=== PATIENT | female | born 1950 | race Caucasian/White ===

== ENCOUNTER → 2018-02-06 | Outpatient (CLI) | payer MEDICARE, OTHER ==
[~2018-02-06] MED LIST: D3-20002000 UNIT; Daily Multiple1 EACH PO; FOLI1; LOSA25; LOSA50 PO; LOSARTAN POTAS100 MG PO; METTREX2.5 PO; MULT50L; PRED1; Prilosec Otc20 MG
== END ==
LOC: LAB EV 09:15 → LAB SHORT 09:15
DX: N30.01 Acute cystitis with hematuria (principal)
CPT/HCPCS: 87077; 87086; 87186

== ENCOUNTER 2020-12-17 08:04 | Emergency (ER) | payer MEDICARE, OTHER ==
[~2020-12-17] VITALS: Ht 162.6 cm; Wt 95.2 kg
[2020-12-17] MEDS ORDERED: AMLODIPINE BESYL5 MG PO (08:40)
[2020-12-17] MEDS ORDERED: CYCL10 PO (11:38)
[2020-12-17] MEDS ORDERED: Percocet 5-3251 EACH PO (11:38)
== END 2020-12-17 11:48 | disposition home or self-care (01) ==
LOC: ER 08:04
DX: M54.5 Low back pain (principal); I10 Essential (primary) hypertension; Z88.7 Allergy status to serum and vaccine; Z88.1 Allergy status to other antibiotic agents; Z91.012 Allergy to eggs; Z79.899 Other long term (current) drug therapy
CPT/HCPCS: 72100; 73502; 73590; 99283-25; A9270

== ENCOUNTER 2022-03-01 09:45 | Day surgery (SDC) | payer MEDICARE, OTHER ==
[~2022-03-01] VITALS: Ht 162.6 cm; Wt 92.7 kg
[~2022-03-01 09:45] MED LIST changes: +AMLODIPINE BESYL5 MG PO; +CYCL10 PO; +Percocet 5-3251 EACH PO
--- NOTE | 2022-03-01 10:51 | NUR ---
03/01/22 1051 Virginia Flower CALL LIGHT WITHIN REACH
== END 2022-03-01 12:15 | disposition home or self-care (01) ==
LOC: ORSCSDS 09:45 → ORD 11:15 → ORSCSDS 12:15
PROVIDERS: Surgery
PROC: 0DBK8ZX Excision of Ascending Colon, Via Natural or Artificial Opening Endoscopic, Diagnostic (ICD-10-PCS; principal; 2022-03-01 11:15)
DX: Z12.11 Encounter for screening for malignant neoplasm of colon (principal); Z86.010 Personal history of colon polyps; D12.2 Benign neoplasm of ascending colon; I10 Essential (primary) hypertension; M06.9 Rheumatoid arthritis, unspecified; G47.33 Obstructive sleep apnea (adult) (pediatric); E66.9 Obesity, unspecified; Z68.35 Body mass index [BMI] 35.0-35.9, adult; Z79.899 Other long term (current) drug therapy
CPT/HCPCS: 88305; J2704; J7120

== ENCOUNTER 2022-03-24 06:06 | Day surgery (SDC) | payer MEDICARE, OTHER ==
[~2022-03-24] VITALS: Ht 162.6 cm; Wt 94.7 kg
[~2022-03-24 06:06] MED LIST changes: +ALDACTONE25 MG PO; +HYDCHL25 PO; +OMEP20ER PO; -Prilosec Otc20 MG; +Prilosec Otc20 MG PO
--- NOTE | 2022-03-24 06:43 | NUR ---
PT ADMITTED TO [facility]. AGREES WITH PLANNED SURGERY. LUNG SOUNDS CLEAR.
--- NOTE | 2022-03-24 08:58 | NUR ---
ARRIVED INTO STEP RECIEVED PATIENT AND REPORT.
--- NOTE | 2022-03-24 09:35 | NUR ---
Discharge instructions reviewed with patient. Patient verbalizes understanding. Copy given to patient to take home. Patient States Post-Procedure ride home has been arranged. Discharged via wheelchair to private car for ride home.
== END 2022-03-24 23:35 | disposition home or self-care (01) ==
LOC: ORSCMMR 06:06 → ORD 07:30 → ORSCMMR 23:35
PROVIDERS: Surgery
PROC: 0JB70ZZ Excision of Back Subcutaneous Tissue and Fascia, Open Approach (ICD-10-PCS; principal; 2022-03-24 07:30)
DX: D17.1 Benign lipomatous neoplasm of skin and subcutaneous tissue of trunk (principal); I12.9 Hypertensive chronic kidney disease with stage 1 through stage 4 chronic kidney disease, or unspecified chronic kidney disease; N18.30 Chronic kidney disease, stage 3 unspecified; G47.33 Obstructive sleep apnea (adult) (pediatric); K21.9 Gastro-esophageal reflux disease without esophagitis; Z79.899 Other long term (current) drug therapy; E66.9 Obesity, unspecified; Z68.35 Body mass index [BMI] 35.0-35.9, adult
CPT/HCPCS: 88304; J0690; J1100; J2250; J2370; J2405; J2704; J3010; J7120

== ENCOUNTER → 2022-12-26 | Outpatient (CLI) | payer MEDICARE, OTHER ==
[2022-12-26 15:55] LABS: BASOPHILS ABSOLUTE AUTO 0.03 K/mm3 (0.00-0.23); BASOPHILS PERCENT AUTO 1 % (0-2); EOSINOPHILS ABSOLUTE AUTO 0.13 K/mm3 (0.00-0.68); EOSINOPHILS PERCENT AUTO 2 % (0-6); Hematocrit 42.4 % (33.0-51.0); Hemoglobin 14.2 g/dL (11.5-16.0); IMMATURE GRAN ABSOLUTE AUTO 0.01 K/mm3 (0.00-0.10); IMMATURE GRAN PERCENT AUTO 0 % (0-1); LYMPHOCYTES ABSOLUTE AUTO 1.62 K/mm3 (0.84-5.20); LYMPHOCYTES PERCENT AUTO 28 % (21-46); MONOCYTES PERCENT AUTO 7 % (4-13); Mean Corpuscular HGB 29.3 pg (26.0-34.0); Mean Corpuscular HGB Conc 33.5 g/dL (31.5-36.5); Mean Corpuscular Volume 88 fL (80-100); Mean Platelet Volume 10.7 fL (9.1-12.4); NEUTROPHILS PERCENT AUTO 63 % (41-73); Platelet Count 239 K/mm3 (150-400); RDW Coefficient Variation 13.2 % (11.7-14.2); RDW Standard Deviation 42.5 fL (35.1-46.3); Red Blood Cell Count 4.84 M/mm3 (3.80-5.20); White Blood Cell Count 5.89 K/mm3 (4.00-11.30)
[2022-12-26 16:07] LABS: Albumin, Blood 3.8 g/dL (3.4-5.0); Bilirubin, Total 0.6 mg/dL (0.1-1.0); Bun/Creatinine Ratio 27.7 (12.0-20.0); Calcium, Blood 9.6 mg/dL (8.5-10.1); Creatinine, Blood 0.94 mg/dL (0.40-1.00); Globulin, Blood 3.7 g/dL (2.2-4.0); Total Protein, Blood 7.5 g/dL (6.4-8.2)
== END ==
LOC: LAB SHORT 15:43 → LAB 15:43
PROVIDERS: Emergency Medicine
DX: R10.9 Unspecified abdominal pain (principal)
CPT/HCPCS: 80053; 83690; 85025

== ENCOUNTER 2023-06-02 21:49 | Emergency (ER) | payer OTHER, MEDICARE ==
[~2023-06-02] VITALS: Ht 162.6 cm; Wt 95.2 kg
[2023-06-02 22:06] VITALS: BP 163/91
[2023-06-03] MEDS ORDERED: AMOCLA875 PO (00:04)
[2023-06-03] MEDS ORDERED: TYLECOD3 PO (00:04)
== END 2023-06-03 00:20 | disposition home or self-care (01) ==
LOC: ER 21:49
DX: S61.551A Open bite of right wrist, initial encounter (principal); I10 Essential (primary) hypertension; Z88.1 Allergy status to other antibiotic agents; Z88.2 Allergy status to sulfonamides; Z88.5 Allergy status to narcotic agent; Z88.6 Allergy status to analgesic agent; Z88.7 Allergy status to serum and vaccine; Z91.012 Allergy to eggs; Z79.899 Other long term (current) drug therapy; W54.0XXA Bitten by dog, initial encounter; Y93.K9 Activity, other involving animal care
CPT/HCPCS: 99282; A9270

== ENCOUNTER → 2024-12-25 | Outpatient (CLI) | payer MEDICARE, OTHER ==
[~2024-12-25] MED LIST changes: +AMOCLA875 PO; +TYLECOD3 PO
[2024-12-25 17:43] LABS: Influenza A, PCR NEGATIVE (NEGATIVE); Influenza B, PCR NEGATIVE (NEGATIVE); Resp Syncytial Virus, PCR NEGATIVE (NEGATIVE); SARS-Cov-2 (COVID-19) PCR, MMC NEGATIVE (NEGATIVE)
== END ==
LOC: LAB 15:27 → LAB SHORT 15:27
PROVIDERS: Nurse Practitioner Family
DX: J02.9 Acute pharyngitis, unspecified (principal); R05.9 Cough, unspecified
CPT/HCPCS: 0241U